=== PATIENT | female | born 1965 | race Caucasian/White ===

== ENCOUNTER 2017-03-05 05:39 | Observation (INO) | payer OTHER ==
[~2017-03-05] VITALS: Ht 163.8 cm; Wt 75.9 kg
--- NOTE | ~2017-03-05 | CON ---
PATIENT'S NAME: PATRICIA PETERSON [facility] AGE: 51 Y [address] ROOM: [place] [address] LOCATION: GPCU ADMIT DATE: 03/05/2017 Consultation DISCHARGE DATE: 03/06/2017 FAMILY PHYSICIAN: Physician, Unknown ATTENDING PHYSICIAN: Rene Jensen REFERRING PHYSICIAN: Peter Kennedy MD REASON FOR CONSULT: Bradycardia and chest pain. HISTORY OF PRESENT ILLNESS: This is a 51-year-old female who presented to the emergency room with complaints of chest pressure that did not resolve with rest. She had gotten up to let the cat out, went back to bed, and felt pressure in her chest. It did not resolve after about 15 minutes of rest. So, she presented to the ER. She denies any exertional chest pain prior to this. She denies shortness of breath, orthopnea, PND, or pedal edema. She has had shoulder and neck discomfort described as an achiness and constant, but is not exacerbated by activity. She denies feeling any palpitations. She did have one day of dizziness that was very short-lived, but nothing since then. She does admit to being very tired lately. She saw her primary care physician last week, and her TSH was reported as normal. Her initial cardiac enzymes are normal, and her EKG shows nonspecific T-wave changes. PAST MEDICAL HISTORY: 1. Chest pain. 2. Hyperlipidemia. 3. Depression. 4. Headaches. 5. Arthritis. 6. Surgical menopause. 7. Heartburn. PAST SURGICAL HISTORY: 1. Bilateral ACL repairs. 2. Meniscus repair. 3. Tonsillectomy. 4. Hemorrhoidectomy. 5. Left elbow repair from a fracture. 6. Removal of foreign body from her face. 7. Total hysterectomy. FAMILY HISTORY: Father had open heart surgery in his 50s. He also had colon cancer, bladder cancer, and bleeding ulcers. Mother had a pacemaker implanted at the age of 74 for bradycardia. She has a brother who is 54, just had an SC, and needs a PATIENT'S NAME: PATRICIA PETERSON [facility] AGE: 51 Y [address] ROOM: [place] [address] LOCATION: GPCU ADMIT DATE: 03/05/2017 Consultation DISCHARGE DATE: 03/06/2017 FAMILY PHYSICIAN: Physician, Unknown ATTENDING PHYSICIAN: Rene Jensen. A second brother aged 56 has a pacemaker ICD. Maternal grandfather had cirrhosis of the liver. Maternal grandmother had breast cancer and a brain tumor. SOCIAL HISTORY: She is a nonsmoker. She drinks socially. She is . ALLERGIES: PENICILLIN. CURRENT HOME MEDICATIONS: 1. Aspirin 81 mg every day. 2. Atorvastatin 10 mg daily. 3. Wellbutrin SR 150 mg daily. 4. Lexapro 20 mg daily. 5. Premarin 0.625 mg every h.s. 6. Probiotic one capsule daily. 7. Meloxicam 15 mg every day. 8. Multivitamin daily. 9. Zomig 2.5 mg p.o. p.r.n. REVIEW OF SYSTEMS: GENERAL: She has been very fatigued lately. HEAD: No history of headache. EYES: No blurred vision or double vision. EARS: No problems with hearing. NOSE: No epistaxis or rhinorrhea. MOUTH: No gingival bleeding. THROAT: Denies sore throat or difficulty swallowing. GASTROINTESTINAL: Negative for nausea, vomiting, or diarrhea. No melena or hematochezia. GENITOURINARY: Negative for urinary frequency or urgency. MUSCULOSKELETAL: She is complaining of shoulder and neck discomfort. PSYCHIATRIC: She does have problems with depression and is on medications. NEUROLOGIC: No numbness, tingling, or CVA symptomatology. PHYSICAL EXAMINATION: VITAL SIGNS: Her height is 65 inches tall, weight is 167.5. Her blood pressure is 135/75; heart rate 40s, regular sinus rhythm; and temperature is 97.7. GENERAL: She is alert and oriented. Currently, chest pain-free. SKIN: Warm, dry, and pink. HEENT: Pupils equal, round, and react briskly. NECK: Soft and supple. No lymphadenopathy or thyromegaly. JVD is flat. RESPIRATORY: Lung sounds are clear to auscultation anteriorly and posteriorly PATIENT'S NAME: PATRICIA PETERSON [facility] AGE: 51 Y [address] ROOM: [place] [address] LOCATION: GPCU ADMIT DATE: 03/05/2017 Consultation DISCHARGE DATE: 03/06/2017 FAMILY PHYSICIAN: Physician, Unknown ATTENDING PHYSICIAN: Rene Jensen without evidence of wheezes, rales, or rhonchi. CARDIOVASCULAR: Regular with sinus bradycardia with normal S1 and S2. ABDOMEN: Soft. Bowel sounds are present. EXTREMITIES: No peripheral edema. No clubbing. No cyanosis. Distal pulses are 2+ throughout. LABORATORY DATA: Troponin-I is 0.04. Hemoglobin 13.5. BUN is 10, creatinine 0.8, sodium 139, and potassium 3.6. Magnesium is 2.3. LDL is 102. ASSESSMENT: 1. Chest pain. We are going to check an echocardiogram and continue serial cardiac enzymes. We did change her aspirin to 325 mg p.o. every day. 2. Hypokalemia. We will replace her potassium today and recheck her lab work in the morning. 3. Sinus bradycardia. We will continue to monitor her for now. The assessment and plan, history of present illness, and physical exam are per Dr. Kennedy. We would like to thank Dr. Jensen for allowing us to participate in the patient's care. SUSSY POSEY APRN FOR MD BRISEIDA GOP/loril /[id number] d: 03/08/17 1235 t: 03/15/17 1331, CONSULTATION REPORT
--- NOTE | ~2017-03-05 | HP ---
[facility] 51 Y [address] ROOM: [place] [address] LOCATION: GPCU ADMIT DATE: 03/05/2017 History & Physical DISCHARGE DATE: FAMILY PHYSICIAN: PHYSICIAN, UNKNOWN ATTENDING PHYSICIAN: Rene Jensen DATE OF SERVICE: CHIEF COMPLAINT: Chest pain. HISTORY OF PRESENT ILLNESS: The patient is a 51-year-old female who was experiencing chest pain from 4 or 5 this morning and has significant family history of cardiac issues. The patient states her chest pain is better and she denies any shortness of breath, fevers, chills, nausea, vomiting, headaches, or visual changes. PAST MEDICAL HISTORY: 1. Allergic rhinitis. 2. Migraines. 3. Hyperlipidemia. 4. Mild depression. 5. Thyroid nodule. PAST SURGICAL HISTORY: 1. ACL repair. 2. . 3. Colonoscopy. 4. Elbow surgery. 5. Hysterectomy. 6. Foreign body removed from cheek. ALLERGIES: 1. PENICILLIN. 2. SULFA. MEDICATIONS: Please see list. SOCIAL HISTORY: The patient denies any tobacco use and is . FAMILY HISTORY: Significant for cancer in the father, paternal grandfather, maternal grandmother, also cardiovascular disease with UT in his 50s in the brother, PATIENT'S NAME: PATRICIA PETERSON [facility] AGE: 51 Y [address] ROOM: [place] [address] LOCATION: GPCU ADMIT DATE: 03/05/2017 History & Physical DISCHARGE DATE: FAMILY PHYSICIAN: PHYSICIAN, UNKNOWN ATTENDING PHYSICIAN: Rene Jensen also diabetes in the grandmother, also history of hepatitis C in the family, and hypertension in the mother and thyroid disorder. Father had a CABG in his 40s and other brother has history of atrial fib with pacemaker. REVIEW OF SYSTEMS: A complete review of systems obtained, pertinent positives and negatives as mentioned in the HPI. OBJECTIVE: VITAL SIGNS: Temperature 98.7, pulse 40, respirations 16, and blood pressure 130/75. GENERAL: The patient is alert and oriented. Appears in no acute distress. HEENT: Head: Normocephalic, atraumatic. Eyes: Conjunctivae clear. No scleral icterus. Mouth: Oropharynx grossly moist and pink. No lesion or exudates. NECK: Supple. No lymphadenopathy or thyromegaly. HEART: Regular rate and rhythm. No rubs, murmurs, or gallops. LUNGS: Clear to auscultation bilaterally. ABDOMEN: Bowel sounds present. Nontender. EXTREMITIES: No cyanosis, clubbing, or edema. VASCULAR: Pulses are +2 and equal bilaterally. SKIN: No rash or lesions. LYMPHATICS: No lymphadenopathy. NEURO: Cranial nerves 2 through 12 grossly intact. LABORATORY DATA: Labs are significant for CBC, CMP, BMP, and cardiac enzymes were normal, chest x-ray was normal,and EKG showed bradycardia. ASSESSMENT: 1. Chest pain. 2. Bradycardia. 3. Hyperlipidemia. 4. Seasonal allergies. 5. Depression. PLAN: At this time, we will consult Cardiology and they will follow. We will keep her on telemetry and trend out her enzymes. We will do morphine for pain and Zofran for any nausea that she will have. We will continue on her statin and check a lipid panel. Allergies and depression were stable and we will continue with home medications. PATIENT'S NAME: PATRICIA PETERSON [facility] AGE: 51 Y [address] ROOM: [place] [address] [facility] ADMIT DATE: 03/05/2017 History & Physical DISCHARGE DATE: FAMILY PHYSICIAN: PHYSICIAN, UNKNOWN ATTENDING PHYSICIAN: Rene Jensen MD ZHANG KRISHNAMURTHY/tiago /[id number] D: 836 T: 015 HISTORY & PHYSICAL
--- NOTE | ~2017-03-05 | ER ---
PATIENT'S NAME: PATRICIA PETERSON [facility] AGE: 51 Y [address] ROOM: [place] [address] LOCATION: GPCU ADMIT DATE: 03/05/2017 ER/Outpatient Report DISCHARGE DATE: FAMILY PHYSICIAN: PHYSICIAN, UNKNOWN ATTENDING PHYSICIAN: Rene Jensen Time of Arrival: 05:39 Time Seen: 06:00 IDENTIFICATION: A 51-year-old female. CHIEF COMPLAINT: Chest pain. HISTORY OF PRESENT ILLNESS: The patient is a 51-year-old female, who developed substernal chest pain with radiation up toward her neck at 05:15 a.m. This is associated with shortness of breath and lightheadedness. No diaphoresis. No nausea or vomiting. She has not had pain like this before. Cardiac risk factors include very strong family history and hyperlipidemia. ALLERGIES: TO PENICILLIN, AND SULFA. CURRENT MEDICATIONS: 1. Lipitor 10 mg daily. 2. Lexapro 20 mg daily. 3. Wellbutrin ER 150 mg daily. 4. Aspirin 81 mg daily. 5. Premarin daily. MEDICAL PROBLEMS: Anxiety, depression, postmenopausal, and hyperlipidemia. PRIOR SURGERIES: Hysterectomy, section, colonoscopy, elbow surgery, and ACL repair. 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 She is . Lives in [place]. Tobacco use, denies. Alcohol use, denies. Drug use, denies. FAMILY HISTORY: Father with coronary artery disease, status post CABG in his 50s. One brother PATIENT'S NAME: PATRICIA PETERSON [facility] AGE: 51 Y [address] ROOM: [place] [address] LOCATION: GPCU ADMIT DATE: 03/05/2017 ER/Outpatient Report DISCHARGE DATE: FAMILY PHYSICIAN: PHYSICIAN, UNKNOWN ATTENDING PHYSICIAN: Rene Jensen with status post IN, another brother with cardiac arrhythmia. She things history of ventricular tachycardia. He has a pacemaker. Mother also has atrial fibrillation and a pacemaker. REVIEW OF SYSTEMS: All systems reviewed and negative other than what is noted in the HPI. PHYSICAL EXAMINATION: VITAL SIGNS: Weight 74.8 kg. Blood pressure 130/75, pulse 48, respirations 16, temperature 98.7, and sats 97% on room air. GENERAL: Pleasant female with 7/10 chest pain. In moderate distress. HEENT: Head is normocephalic, atraumatic. Eyes; pupils are equal and reactive to light and accommodation. Extraocular movements intact. Ears; TMs not visualized. Eyes: Pupils equal and reactive to light and accommodation. Extraocular movements intact. Nose: Mucosa pink. No lesions. Mouth: No lesions. Pharynx benign. NECK: Supple. No lymphadenopathy. No thyromegaly. LUNGS: Clear to auscultation. Breath sounds are equal. HEART: Sinus bradycardia. No murmur, rub, or gallop. ABDOMEN: Bowel sounds present. Soft, nondistended, nontender. No chest wall tenderness. SKIN: Seaman, warm, and dry. No lesions or rashes noted. NEURO: The patient is alert and oriented x4. Cranial nerves II through XII grossly intact. Motor strength 5/5 throughout. Sensation is intact to light touch. No lower extremity edema. No calf tenderness. EMERGENCY DEPARTMENT COURSE: An IV was initiated. The patient was given 4 baby aspirin and pain improved to 2/10. EKG showed sinus bradycardia at 46 beats per minute. No acute ST elevation. She does have T-wave inversion in lead III. T-wave flattening in 2 and aVF. Repeat EKG at 06:31 shows sinus bradycardia at 46 beats per minute. No acute changes on the monitor. It looks like she was having some PACs. Second 12-lead was done, but with no change. Hemoglobin 13.5, hematocrit 40.1, platelets 160, white count 6.5, with a normal differential. INR 0.96. ProBNP 39, sodium 139, potassium 3.6, chloride 105, CO2 of 27, BUN 10, creatinine 0.8, blood sugar 90. Liver enzymes normal. Magnesium 2.3, CK 47, CK-MB less than 0.5. Troponin I less than 0.040. D-dimer 0.35. Chest x-ray, no acute process. Pending Radiology over-read. An IV was initiated at 150 mL/h. The patient did receive 4 baby aspirin. Her pain completely resolved on its own, but she did remain bradycardic 41-46 throughout her stay here in the emergency room. She states that her heart rate is not usually that low and that she does not exercise on a regular basis. PATIENT'S NAME: PATRICIA PETERSON [facility] AGE: 51 Y [address] ROOM: [place] [address] [facility] ADMIT DATE: 03/05/2017 ER/Outpatient Report DISCHARGE DATE: FAMILY PHYSICIAN: PHYSICIAN, UNKNOWN ATTENDING PHYSICIAN: Rene Jensen IMPRESSION AND PLAN: 1. Chest pain. Cardiac risk factors include postmenopausal estrogen use, positive family history, and hyperlipidemia. The patient will be admitted for serial EKG and enzymes with Cardiology consultation. Dr. Jensen evaluated her in the emergency room. Provides admission. Dr. Kennedy will provide consultation. 2. Sinus bradycardia of uncertain etiology. Family history of cardiac arrhythmia. 3. Mild hypokalemia, potassium 3.6. 4. Hyperlipidemia. 5. Anxiety and depression. The patient remained in improved and stable condition throughout her stay here in the emergency room and was taken to the floor in stable condition. MD JEAN-PIERRE PARKER/tiago /[id number] d: 03/05/17 1631 t: 03/06/17 0610, OUTPATIENT REPORT
--- NOTE | ~2017-03-05 | ECHO ---
Transthoracic Echocardiography Report (TTE) Demographics Patient Name PATRICIA PETERSON Date of Study 03/05/2017 Patient Number [id number] Visit Number [id number] Date of 1965 Room Number G6302 Gender Female Number Age 51 year(s) Referring BetsyTadeo Genevieve Lena Boat Detailer Michelle Urbina Physician FOUNDRY WORKER APPRENTICE RVT Physician Interpreting Marcia Green MD Pinsetter Mechanic Helper Physician Supervising Ordering Marcia Green MD, MD/MLP Physician Nurse Stress Tomato Pulper Operator Conclusions Contractility Score Summary Normal Left Ventricular contractility was noted. Summary The estimated left ventricular ejection fraction is 50-55%. Diastolic function indeterminate due to patient's arrhythmia. Mild calcification of the mitral valve. Trivial pulmonic valve regurgitation by color Doppler. Procedure Type of Study TTE procedure:2D Echocardiogram. Procedure Date Date: 03/05/2017 Start: 11:26 AM Study Location: Inpatient Portable Technical Quality: Adequate visualization Indications:Chest pain. Appropriate Use Criteria: 9 Patient Status: Routine HR: 43 bpm M-Mode/2D Measurements LV Diastolic Dimension: 5.09 cm LV Systolic Dimension: 3.17 cm LV Septum Diastolic: 1.04 cm LV PW Diastolic: 0.9 cm AO Root Dimension: 2.6 cm Cardiac Output: 2.2 l/min AV Cusp Separation: 1.9 cm RV Diastolic Dimension: 2.83 cm LVOT: 2 cm LVOT VTI: 16.3 cm RV Base: 2.58 cm LV Stroke volume: 51.18 ml RV Length: 5.69 cm TAPSE: 2.02 cm TDI-S': 12.4 cm/s Doppler Measurements AV Peak Velocity: 1.19 m/s MV Peak E-Wave: 0.71 m/s AV Peak Gradient: 5.66 mmHg MV Peak A-Wave: 0.45 m/s AV Mean Gradient: 3 mmHg MV E/A Ratio: 1.59 LVOT Peak Velocity: 0.59 m/s MV P1/2t: 82 msec PV Peak Velocity: 0.84 m/s E' Septal Velocity: 0.05 m/s PV Peak Gradient: 2.79 mmHg E' Lateral Velocity: 0.08 m/s A' Septal Velocity: 0.1 m/s A' Lateral Velocity: 0.16 m/s Findings Left Ventricle Normal left ventricle size and function. Right Ventricle Normal right ventricle structure and function. Left Atrium Normal left atrial size. Right Atrium Normal right atrial size. Mitral Valve Mild calcification of the mitral valve. Trivial mitral regurgitation by color Doppler. Aortic Valve Normal aortic valve structure and function. Tricuspid Valve Normal tricuspid valve structure and function. Pulmonic Valve Trivial pulmonic valve regurgitation by color Doppler. Pericardial Effusion No evidence of pericardial effusion. Miscellaneous Visualized portions of the aortic root and ascending aorta appear normal in size. Pleural Effusion No evidence of pleural effusion. Contractility Score LV regional wall motion:(0-Non visualized 1-Normal 2-Hypokinesis 3-Akinesis 4-Dyskinesis 5-Aneurysm) Signature dtt: Peter Kennedy (cardio) dtd: 03/05/17 1126 Physician Self Edit
--- NOTE | ~2017-03-05 | ESTC ---
Cardiac Perfusion Imaging Demographics Patient Name KRISTEN Teresa Gender Female Patient Number [id number] Race Visit Number [id number] Ethnicity Corporate ID Room Number G6302 Accession Number [id number] Height 64 inches Date of 1965 Weight 166 pounds Interpreting CNC Date of study 03/06/2017 Physician Daniela Dennis MD Supervising MD/JOSE ANGELP Daniela Dennis NM Technologist Morales Wong MD Ordering Physician Marcia Green MD Stress sleep technician Stress ECG Reading Daniela Dennis Nurse Melita Solis RN Physician MD Mika Alexis RN The procedure was explained in detail to the patient. Risks, complications and alternative treatments were reviewed. Written consent was obtained. Procedure Procedure Type: Nuclear Stress Test:Exercise, Cardiolite Stress Test Procedure Start time: 03/06/2017 10:15 Indications: Chest pain. Risk Factors The patient risk factors include:treated hypercholesterolemia, family history of premature CAD and dyslipidemia. Conclusions Impression ECG portion of exercise stress test is negative for inducible ischemia. Myocardial perfusion imaging reveals perfusion defect in the inferior, latera and apical bee at rest, and this improves during post stress images. This is consistent with artifact and there is no convincing evidence of ischemia or infarct. Calculated LVEF is 65% without any wall motion abnormalities and TID ratio is 0.96. Compared to prior nuclear stress test in 2014, there is no significant change. Stress Protocols Resting ECG Normal sinus rhythm. Resting HR:66 bpm Resting BP:119/73 mmHg Pre-stress physical exam: Patient assessed by Dr. Nicholas prior to testing. Stress Protocol:Exercise Peak HR:153 bpm HR response: Appropriate Peak BP:140/80 mmHg BP response: Appropriate Predicted HR: 167 bpm HR/BP product:78159 % of predicted HR: 92 Max exercise: 10.1 METS Reason for termination:Dyspnea Exercise effort:Good ECG Findings No ECG changes suggestive of ischemia. Arrhythmias No rhythm abnormality. Symptoms Shortness of breath at peak stress. Stress Interpretation Appropriate hemodynamic response to exercise. No significant ST-T wave changes with exercise. EKG portion is negative for ischemia by diagnostic criteria. The Barrera Treadmill score was 9 .This corresponds to a low risk stress test. Imaging Results Summed scores - Summed stress score: 19 - Summed rest score: 6 - Summed difference score: 13 Stress ejection Ejection fraction:65 % EDV :80 ml ESV :28 ml Stroke volume :52 ml LV mass :101 gr Imaging Protocols Rest Stress Isotope:Tc99m Sestamibi IV Isotope: Tc99m Sestamibi IV Isotope dose:12.36 mCi Isotope dose:34.9 mCi Date:03/06/2017 08:38 Date:03/06/2017 11:00 Technique: SPECT Technique: Gated Supine SPECT Supine IV remains in place after procedure. Scan Time:45-60 minutes post Scan Time:15-30 minutes post injection injection Medical History Admission Data Admission date: 03/05/2017 Admission Time: 07:39 Hospital Status: Inpatient. Signatures dtt: YUSUF PADGETT dtd: 03/06/17 1015 Physician Self Edit
[~2017-03-05 05:39] MED LIST: ASPIR 8181 MG PO; LEXAPRO10 MG PO; LIPITOR20 M1 PO; MOTRIN800 MG PO; PREMARIN0.625 MG PO; ZOMIG2.5 MG PO
[2017-03-05 06:07] LABS: BASOPHIL % 0.3 %; EOSINOPHIL # 0.2 K/uL (0.0-0.5); EOSINOPHIL % 3.5 %; HEMATOCRIT 40.1 % (33.0-46.0); HEMOGLOBIN 13.5 g/dL (10.0-15.0); IMMATURE GRANULOCYTE % 0.3 %; LYMPHOCYTE # 2.1 K/uL (0.8-4.0); MCH 30.9 pg (27.0-34.0); MCHC 33.7 gm/dL (32.0-36.5); MCV 91.8 fl (83.0-98.0); MONOCYTE # 0.5 K/uL (0.0-1.0); MPV 11.3 fl (9.4-12.4); NEUTROPHIL # (ANC) 3.6 K/uL (1.8-7.8); NEUTROPHIL % 55.9 %; NRBC % 0 /100WBC (0-0.00); PLATELET COUNT 160 K/uL (150-450); RBC 4.37 M/uL (3.50-5.50); RDW-CV 13.2 % (11.9-14.6); WBC 6.5 K/uL (4.0-11.0)
[2017-03-05 06:15] LABS: INR - (THERAPEUTIC) 0.96 (0.92-1.07); PROTIME 10.1 SECONDS (9.8-11.4); PTT 28 SECONDS (25-32)
[2017-03-05 06:27] LABS: ALBUMIN 3.6 gm/dL (3.5-5.0); ALK PHOS 89 IU/L (33-138); ALT 20 IU/L (12-78); ANION GAP 10.6 (10.0-19.0); AST 18 IU/L (10-40); BLOOD UREA NITROGEN 10 mg/dL (6-24); CALCIUM 8.8 mg/dL (8.5-10.5); CHLORIDE 105 mMol/L (96-110); CO2 27 mMol/L (22-32); CPK 47 IU/L (21-215); CREATININE 0.8 mg/dL (0.5-1.1); MAGNESIUM 2.3 mg/dL (1.8-2.6); POTASSIUM 3.6 mMol/L (3.7-5.1); SODIUM 139 mMol/L (135-145); TOTAL BILIRUBIN 0.7 mg/dL (0.0-1.5)
[2017-03-05] MEDS ORDERED: LEXAPRO20 MG PO (08:48)
[2017-03-05] MEDS ORDERED: LIPITOR10 MG PO (08:49)
[2017-03-05] MEDS ORDERED: WELLBUTRIN SR150 MG PO (08:50)
[2017-03-05] MEDS ORDERED: MOBIC15 MG PO (08:52)
[2017-03-05] MEDS ORDERED: ADULT ONE DAI200 MCG PO (08:54)
[2017-03-05] MEDS ORDERED: PROBIOTIC1 EAC4 PO (08:55)
[2017-03-05 12:10] LABS: CPK 43 IU/L (21-215)
[2017-03-05 18:35] LABS: CPK 45 IU/L (21-215)
== END 2017-03-06 16:53 | disposition disaster alternative care site (69) ==
LOC: GMED 05:39 → GPCU 07:39
PROVIDERS: Emergency Medicine; ADMIT Family Medicine
DX: R07.9 Chest pain, unspecified (principal); R00.1 Bradycardia, unspecified; E87.6 Hypokalemia; E78.5 Hyperlipidemia, unspecified; F32.9 Major depressive disorder, single episode, unspecified; G43.909 Migraine, unspecified, not intractable, without status migrainosus; Z88.0 Allergy status to penicillin; Z88.2 Allergy status to sulfonamides; Z90.710 Acquired absence of both cervix and uterus; Z79.82 Long term (current) use of aspirin; Z79.899 Other long term (current) drug therapy; Z98.890 Other specified postprocedural states
CPT/HCPCS: A9500; J7030